=== PATIENT | male | born 1980 | race Caucasian/White ===

== ENCOUNTER 2017-09-07 15:55 | Emergency (ER) | payer OTHER ==
--- NOTE | 2017-09-07 16:48 | EDPHY ---
H & P Time Seen by Provider: 09/07/17 16:19 HPI/ROS: HPI Right leg pain and swelling. 37-year-old male by private vehicle with his . This patient has been traveling from [place] by car over the last 2 days. He presents to the emergency department complaining of pain and swelling, generalized in his right lower extremity. He has no prior history of DVT. He denies any history of trauma. No back pain. No loss of sensation or weakness in his lower extremities. Denies shortness of breath or chest pain. No other complaints. ROS: Constitutional: No fever, no chills. No weakness. Respiratory: No cough. No shortness of breath. Cardiac: No chest pain, no palpitations. Gastrointestinal: No abdominal pain, no vomiting, no diarrhea. Genitourinary: No hematuria. No dysuria or increased frequency with urination. Musculoskeletal: No back pain. No neck pain. As above. Skin: No rashes. Neurological: No headache. No focal weakness or altered sensation. Past medical history: Surgery for right-sided tib-fib fracture. Clavicle fracture. Social history: Nonsmoker. Here with his . No alcohol. Physical Exam: General Appearance: Alert, no distress. This patient is responding to questions appropriately and in full sentences. This patient appears well- hydrated and well-nourished. Eyes: Pupils equal and round no pallor or injection. No lid edema, erythema or injection. Neurological: Motor sensory function is grossly intact. Cranial nerves are normal. Gait is normal. Skin: Warm and dry, no rashes. Vague asymmetric swelling noted of the right lower extremity compared to the left lower extremity. No palpable cords. Positive Homans sign on the right. The right lower extremity is neurovascularly intact. All joints range without pain or impingement. Psychiatric: No agitation. No depression. Database: EKG: Imaging: Right lower extremity venous Doppler ultrasound: Significant for DVT distal femoral vein through calf vein. Results were discussed with staff radiologist Dr. Abhijeet Downing. Procedures: Emergency department course: Triage vital signs reviewed. He is mildly tachycardic. Vital signs otherwise normal. Right lower extremity ultrasound to be obtained shortly. 5:40 p.m., vital signs reviewed. Tachycardia resolved. Results of ultrasound as noted above discussed. Plan will be to start this patient on Xarelto at 15 mg twice daily. He will be discharged to home. He is to return to his home town in [place] on Monday. He is to follow up with his primary care physician early next week for arrangement of a repeat ultrasound of the right lower extremity and continuation of his anticoagulation. He is in agreement with this plan and feels comfortable being discharged. He understands his follow-up. He understands the importance of his anticoagulation and is medication dosing. Return to emergency department precautions were thoroughly reviewed with him and his . All of their questions were answered. He was discharged from the emergency department in good condition. Differential Diagnosis: The differential diagnosis on this patient includes but is not limited to right lower extremity DVT. Compartment syndrome of the right lower extremity, cellulitis of the right lower extremity, traumatic injury of the right lower extremity unlikely. This represents a partial list of diagnoses considered. These considerations are based on history, physical exam, past history, reassessment and diagnostic testing. Smoking Status: Never smoked Constitutional: Initial Vital Signs Temperature (C) 36.9 C 09/07/17 16:01 Heart Rate 115 H 09/07/17 16:01 Respiratory Rate 18 09/07/17 16:01 Blood Pressure 123/100 H 09/07/17 16:01 O2 Sat (%) 94 09/07/17 16:01 O2 Delivery Mode Room Air Allergies/Adverse Reactions: No Known Allergies Allergy (Unverified 09/07/17 16:01) Home Medications: Medication Instructions Recorded Omeprazole 09/07/17 Rivaroxaban [Xarelto 15mg (*)] 15 mg PO BID #42 tab 09/07/17 ZYRTEC 09/07/17 Medical Decision Making - Diagnostics Imaging Results: Imaging Impressions Extremity Venous Study 09/07/17 16:06 Impression: DVT extending from the distal femoral vein through the calf veins. Findings discussed with Dino Aguiar MD 09/07/2017 at 17:15. Departure - Departure Disposition: Home, Routine, Self-Care Clinical Impression: Right leg pain, Deep vein thrombosis (DVT) of right lower extremity Condition: Good Instructions: Deep Vein Thrombosis (ED) Additional Instructions: Read and follow provided instructions. Follow-up with your primary care physician early next week in [place] for re-evaluation, ongoing treatment of your DVT and a follow-up ultrasound of your right lower extremity. Take medication as prescribed. You are to take Xarelto or rivaroxaban at 15 mg twice daily for 21 days and then 20 mg every day with food. I will write the initial prescription for 15 mg twice daily. Your primary care physician then needs to continue you on this medication after 21 days at 20 mg daily. Return to the emergency department for worsening pain, swelling or discoloration of your right lower extremity, chest pain, shortness of breath or other serious concerns. Referrals: KODAK GONZALEZ [Other] - As per Instructions Prescriptions: Rivaroxaban [Xarelto 15mg (*)] 15 mg PO BID #42 tab
[2017-09-07] MEDS ORDERED: RIVAROXABAN 15 MG TAB PO ONE (17:39)
[2017-09-07 17:51] VITALS: BP 131/94
== END 2017-09-07 18:04 | disposition home or self-care (01) ==
DX: I82.411 Acute embolism and thrombosis of right femoral vein (principal)